=== PATIENT | female | born 1975 | race Caucasian/White ===

== ENCOUNTER 2018-10-29 18:11 | Emergency (ER) | payer OTHER ==
[2018-10-29] MEDS ORDERED: ASPIRIN 81 MG TAB.CHEW ONE (18:19)
[2018-10-29] MEDS ORDERED: NITROGLYCERIN SUBLINGUAL 0.4 MG BOTTLE OF 25. SL ONE (18:30)
[2018-10-29] MEDS ORDERED: ASPIRIN 81 MG TAB.CHEW PO ONE (18:30)
--- NOTE | 2018-10-29 18:35 | PHYS DOC ---
Adult General Chief Complaint Chief Complaint: CHEST PAIN HPI HPI 43-year-old female presents with chest tightness that started about 45 minutes ago. The patient was at work walking around she began have a central chest pressure. There is moderate in severity. It radiates to her left arm and she has some tingling around the base of the left thumb. The patient has intermittent swelling in her left arm with no definitive diagnosis. She feels like the tingling today is different than what she has had in the past. She can't really describe it. She also feels short of breath with her chest tightness. She has increased chest pain with deep breathing. 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 She denies diaphoresis. She admits to nausea, but no vomiting. No history of cardiac disease. No history of lung disease. She has a long history of GERD for which she takes Protonix daily. Review of Systems Review of Systems Constitutional: Denies fever or chills [] Eyes: Denies change in visual acuity, redness, or eye pain [] HENT: Denies nasal congestion or sore throat [] Respiratory: Pain with deep breathing. shortness of breath [] Cardiovascular: No additional information not addressed in HPI [] GI: Nausea. Denies abdominal pain, vomiting, bloody stools or diarrhea [] : Denies dysuria or hematuria [] Musculoskeletal: Left arm "tingling" [] Integument: Denies rash or skin lesions [] Neurologic: Denies headache, focal weakness or sensory changes [] Endocrine: Denies polyuria or polydipsia [] All other systems were reviewed and found to be within normal limits, except as documented in this note. Current Medications Current Medications Current Medications Medications (Trade) Dose Ordered Sig/[facility] Start Time Stop Time Status Last Admin Dose Admin Aspirin (Children'S Aspirin) 324 mg 1X ONCE 10/29/18 18:30 10/29/18 18:31 UNV Physical Exam Physical Exam Constitutional: Well developed, obese, well nourished, no acute distress, non- toxic appearance. [] HENT: Normocephalic, atraumatic, bilateral external ears normal, oropharynx moist, no oral exudates, nose normal. [] Eyes: PERRLA, EOMI, conjunctiva normal, no discharge. [] Neck: Normal range of motion, no tenderness, supple, no stridor. [] Cardiovascular:Heart rate regular rhythm, no murmur [] Lungs & Thorax: Bilateral breath sounds clear to auscultation [] Abdomen: Bowel sounds normal, soft, no tenderness, no masses, no pulsatile masses. [] Skin: Warm, dry, no erythema, no rash. [] Back: No tenderness, no CVA tenderness. [] Extremities: No tenderness, no cyanosis, no clubbing, ROM intact, no edema. [] Neurologic: Alert and oriented X 3, normal motor function, normal sensory function, no focal deficits noted. [] Psychologic: Affect normal, judgement normal, mood concerned. [] EKG EKG Sinus rhythm, rate 70, normal axis, no ST elevations or depressions.[] Radiology/Procedures Radiology/Procedures [] Impressions: EXAM: AP View of the chest DATE: 10/29/2018 6:20 PM INDICATION: Chest pain COMPARISON: No Prior FINDINGS: The heart is not enlarged. Mediastinal and hilar contours are normal. No focal parenchymal airspace opacity. No pleural effusion or pneumothorax. IMPRESSION: 1. No radiographic evidence for acute cardiopulmonary process. Electronically signed by: Alan Kiser MD (10/29/2018 7:04 PM) [facility] DICTATED AND SIGNED BY: ALAN KISER MD DATE: 10/29/181903 CC: REBEKAH ALVAREZ DO; ANISA TRIMBLE ~ Course & Med Decision Making Course & Med Decision Making Pertinent Labs and Imaging studies reviewed. (See chart for details) The patient's labs are unremarkable. Her chest x-ray is negative for acute findings. EKG is unremarkable. Troponin is negative. The patient's heart score is 2. Discussed all these results with the patient. She is feeling better at this time. She would like to go home. I offer her admission for further trending of her troponin and observation. The patient lives close to the hospital and has family at home. If her condition worsens or new symptoms develop, she will return to the emergency room. She has felt primary care physician on Wednesday. We will give her a GI cocktail to see if this helps given her history of complicated GERD. She is stable for discharge at this time. [] Dragon Disclaimer Dragon Disclaimer This electronic medical record was generated, in whole or in part, using a voice recognition dictation system. The HEART Score for CP Pts HEART Score for Chest Pain: HEART Score for Chest Pain Response (Comments) Value History Moderately Suspicious 1 ECG Normal 0 Age < 45 0 Risk Factors 1 or 2 Risk Factors 1 Troponin < Normal Limit 0 Total 2 Risk Factors: Risk Factors: DM, Current or recent (<one month) smoker, HTN, HLP, family history of CAD, obesity. Risk Scores: Score 0 - 3: 2.5% MACE over next 6 weeks - Discharge Home Score 4 - 6: 20.3% MACE over next 6 weeks - Admit for Clinical Observation Score 7 - 10: 72.7% MACE over next 6 weeks - Early Invasive Strategies Departure Departure: Impression: Primary Impression: Chest pain Additional Impression: GERD (gastroesophageal reflux disease) Disposition: 01 HOME, SELF-CARE Condition: STABLE Referrals: ANISA TRIMBLE (PCP) Patient Instructions: Chest Pain (Nonspecific), [id number] Problem Qualifiers Primary Impression: Chest pain Chest pain type: precordial pain Qualified Codes: R07.2 - Precordial pain Additional Impression: GERD (gastroesophageal reflux disease) Esophagitis presence: esophagitis presence not specified Qualified Codes: K21.9 - Gastro-esophageal reflux disease without esophagitis REBEKAH ALVAREZ DO Oct 29, 2018 18:35
[2018-10-29 18:42] LABS: BASO % 0 % (0-3); EOS # 0.1 x10^3/uL (0.0-0.7); EOS % 1 % (0-3); HEMATOCRIT 37.7 % (36.0-47.0); HEMOGLOBIN 12.5 g/dL (12.0-15.5); LYMPH # 2.5 x10^3/uL (1.0-4.8); LYMPH % 32 % (24-48); MEAN CORPUSCULAR HEMOGLOBIN 29 pg (25-35); MEAN CORPUSCULAR HGB CONC 33 g/dL (31-37); MEAN CORPUSCULAR VOLUME 86 fL (79-100); MONO # 0.4 x10^3/uL (0.0-1.1); MONO % 5 % (0-9); NEUT # 4.8 x10^3uL (1.8-7.7); NEUT % 61 % (31-73); PLATELET COUNT 226 x10^3/uL (140-400); RED BLOOD COUNT 4.37 x10^6/uL (3.50-5.40); WHITE BLOOD COUNT 7.8 x10^3/uL (4.0-11.0)
--- NOTE | 2018-10-29 19:06 | RAD ---
EXAM: AP View of the chest DATE: 10/29/2018 6:20 PM INDICATION: Chest pain COMPARISON: No Prior FINDINGS: The heart is not enlarged. Mediastinal and hilar contours are normal. No focal parenchymal airspace opacity. No pleural effusion or pneumothorax. IMPRESSION: 1. No radiographic evidence for acute cardiopulmonary process. Electronically signed by: Alan Kiser MD (10/29/2018 7:04 PM) [facility]
[2018-10-29 19:11] LABS: ALBUMIN 3.9 g/dL (3.4-5.0); CALCIUM 9.2 mg/dL (8.5-10.1); CREATININE 0.6 mg/dL (0.6-1.0); GFR 110.2; POTASSIUM 3.4 mmol/L (3.5-5.1); TOTAL BILIRUBIN 0.2 mg/dL (0.2-1.0)
[2018-10-29 19:54] LABS: BACTERIA,URINE FEW /HPF (0-FEW); BILIRUBIN,URINE NEG (NEG); CLARITY,URINE CLEAR; COLOR,URINE STRAW; GLUCOSE,URINE NEG (NEG); NITRITE,URINE NEG (NEG); RBC,URINE OCC /HPF (0-2); SQUAMOUS EPITHELIAL CELL,UR OCC /LPF; UROBILINOGEN,URINE 0.2 mg/dL (0.2 mg/dL); WBC,URINE OCC /HPF (0-4)
[2018-10-29] MEDS ORDERED: LIDO:MAALOX 1:1 20 ML SINGLE DOSE. PO ONE (20:15)
[2018-10-29 20:17] VITALS: BP 110/55
--- NOTE | 2018-10-30 18:55 | EKG ---
[address] [address] Test Date: 2018-10-29 Test Time: 18:21:20 Pat Name: SHYLA HENAO Department: Room: Gender: F [employer]: : 1975 Requested By: REBEKAH ALVAREZ Order Number: [id number] Reading MD: Measurements Intervals [place] Rate: 70 P: 43 ID: [id number] QRS: 36 QRSD: 90 T: 19 QT: 352 QTc: 383 Interpretive Statements SINUS RHYTHM NO SPECIFIC ECG ABNORMALITIES RI6.01 No previous ECG available for comparison
== END 2018-10-29 20:43 | disposition home or self-care (01) ==
LOC: ER 18:17
DX: R07.2 Precordial pain (principal); K21.9 Gastro-esophageal reflux disease without esophagitis; R22.32 Localized swelling, mass and lump, left upper limb
CPT/HCPCS: 36415; 71045; 80053; 81001; 84484; 85025; 93005; 99285

== ENCOUNTER 2019-12-12 11:18 | Emergency (ER) | payer OTHER ==
[~2019-12-12] VITALS: Ht 165.1 cm; Wt 111.1 kg
[2019-12-12] MEDS ORDERED: IV NORMAL SALINE 1,000ML 1,000 ML IV SCH (11:32)
--- NOTE | 2019-12-12 11:36 | PHYS DOC ---
Past History Past Medical History: GERD, High Cholesterol Past Surgical History: Hysterectomy, Tonsillectomy Alcohol Use: None Drug Use: None General Adult EDM: Chief Complaint: FLANK PAIN HPI: HPI: 44 yo F PMH DM, "esophageal polyps" and GERD, presents to the ed with c/o right flank pain x3-4 days with associated hematuria, increased urinary frequency and suprapubic pain. Patient describes the pain as dull and constant with intermittent episodes of sharp stabbing nonradiating pain. Patient states she has had these symptoms for over 1 month and was seen by her primary care physician, hematuria has never resolved after pt was started on abx for a uti. Pt states "I just want this pain to go away, it's been a month." Some relief with heating pad. Was referred to urology and has an upcoming appointment on January 17. LMP-h/o hysterectomy due to heavy menses no longer pursuing children. Patient denies any daily alcohol abuse, no cocaine or illicit drug use. Patient [facility], concern for nephrolithiasis. Patient reports recent CT at [facility] due to left upper extremity swelling and headaches. Grandfather with colon cancer. Pt has had a negative colonscopy in past 5 yrs. No h/o GIB or blood transfusions. No h/o traumatic back pain/herniations/radiculopathies. Review of Systems: Review of Systems: Constitutional: Denies fever or chills, denies unexplained weight loss or night sweats Eyes: Denies change in visual acuity HENT: Denies nasal congestion or sore throat Respiratory: Denies cough or shortness of breath or hemoptysis Cardiovascular: Denies chest pain or edema or syncope GI: Denies abdominal pain, nausea, vomiting, bloody stools or diarrhea : Denies vaginal bleeding or abnormal vaginal discharge Musculoskeletal: Denies saddle anesthesia or joint pain Integument: Denies rash Neurologic: Denies headache, focal weakness or sensory changes, no neck stiffness Endocrine: Denies polydipsia Lymphatic: Denies swollen glands Psychiatric: Denies depression or anxiety Heart Score: Risk Factors: Risk Factors: DM, Current or recent (<one month) smoker, HTN, HLP, family history of CAD, obesity. Risk Scores: Score 0 - 3: 2.5% MACE over next 6 weeks - Discharge Home Score 4 - 6: 20.3% MACE over next 6 weeks - Admit for Clinical Observation Score 7 - 10: 72.7% MACE over next 6 weeks - Early Invasive Strategies Allergies: Allergies: Allergies Coded Allergies Type Severity Reaction Last Updated Verified promethazine Allergy Unknown 10/29/18 Yes Physical Exam: PE: Constitutional: Well developed, well nourished, no acute distress, non-toxic appearance. [] HENT: Normocephalic, atraumatic, bilateral external ears normal, oropharynx moist, no oral exudates, nose normal. [] Eyes: EOMI, conjunctiva normal, no discharge. [] Neck: Normal range of motion, supple, no stridor. [] Cardiovascular:Heart rate regular rhythm, no murmur [] Lungs & Thorax: Bilateral breath sounds clear to auscultation [] Abdomen: Bowel sounds normal, soft, no tenderness, no masses, no pulsatile masses. [] Skin: Warm, dry, no erythema, no rash. [] Back: No tenderness, +right CVA tenderness. [] Extremities: No tenderness, no cyanosis, no clubbing, ROM intact, no LE edema Neurologic: Alert and oriented X 3, normal motor function, normal sensory function, no focal deficits noted. [] Psychologic: Affect normal, judgement normal, mood normal. [] EKG: EKG: [] Radiology/Procedures: Radiology/Procedures: IMAGING REPORT Signed PATIENT: SHYLA HENAO ACCOUNT: [id number] : 1975 LOCATION: ER AGE: 44 SEX: F EXAM STATUS: REG ER ORD. PHYSICIAN: NIVIA HERNANDEZ DO REASON: right flank pain PROCEDURE: CT ABDOMEN PELVIS WO CONTRAST EXAM: CT Abdomen and Pelvis without IV contrast INDICATION: Reason: right flank pain / Spl. Instructions: / History: TECHNIQUE: Multi-detector row CT images were acquired from the lung bases through the abdomen and pelvis without the use of IV contrast. Sagittal and coronal images were acquired from the transaxial data. All CT scans performed at this facility utilize dose optimization techniques as appropriate to the exam, including the following: Automated exposure control and adjustment of the mA and/or KV according to patient size (this includes techniques or standardized protocols for targeted exams where dose is indication/reason for exam). ORAL CONTRAST: None COMPARISON: None FINDINGS: The absence of IV contrast limits evaluation of soft tissue pathology. LOWER CHEST: Unremarkable LIVER: Diffusely fatty infiltrated, and enlarged up to 20 cm craniocaudal extent.. BILIARY SYSTEM: Gallbladder is unremarkable. Bile ducts are not dilated. PANCREAS: Unremarkable SPLEEN: Unremarkable ADRENALS: Unremarkable KIDNEYS & URETERS: Unremarkable BLADDER: Unremarkable REPRODUCTIVE ORGANS: Hysterectomy. Ovaries unremarkable on CT. GASTROINTESTINAL: The stomach, small bowel, and colon are unremarkable. The appendix is normal. MESENTERY/PERITONEUM/RETROPERITONEUM: Unremarkable VASCULAR: Unremarkable LYMPH NODES: No adenopathy OSSEOUS & SOFT TISSUES: Unremarkable IMPRESSION: Hepatomegaly and hepatic steatosis. Otherwise unremarkable CT of the abdomen and pelvis without contrast. No evidence of radiopaque stone disease or of urinary tract obstruction or inflammation on noncontrast CT. Electronically signed by: John Garcia MD (12/12/2019 12:18 PM) [id number] DICTATED AND SIGNED BY: JOHN GARCIA MD DATE: 12/12/19 1218 CC: NIVIA HERNANDEZ DO; ANISA TRIMBLE Impressions: Acute aortic dissection score 0 = low category, 6% prevalence Course & Med Decision Making: Course & Med Decision Making Pertinent Labs and Imaging studies reviewed. (See chart for details) Concern for right flank pain and hematuria x [address] with hepatosis, no radiopaque stone. Vasculature is noted as unremarkable. Flank pain and hematur ia, ddx-aortic dz/aneurysm/dissection considered, but low suspicion with abdominal and infrarenal aorta less than 3 cm, sxs have been present for 1 month, pt is HD stable, no FH aortic disease/CTD, BP wnl, pain is not a sudden onset and pain is well managed/pt in no severe distress. U/a contaminated, no bacteriuria, small blood, 1-2 rbc. Patient afebrile, no tachycardia, no leukoc ytosis with blood pressure normal range. I did discuss repeating scan with IV contrast to evaluate aorta, pt declined stating she wanted to go home. We discussed pain management-will prescribe muscle relaxers. My evaluation is consistent with pmd-will need urology referral for cystoscopy. Strict ed return precautions for neuro deficits, saddle anesthesia, urinary/bowel retention/in continence, severe pain, diaphoresis, syncope, etc. Encouraged urgent outpatient follow-up with PMD and urology. Life-threatening processes were considered but are low suspicion at this time, given history and physical exam. Pt was educated on all prescription medications and adverse effects. All patient's questions were answered and pt was stable at time of discharge. Differential includes aortic dissection, cauda equina syndrome, transverse myelitis, spinal cord compression, epidural abscess or hematoma, osteomyelitis, disc herniation, surgical abdomen, stable or unstable fracture, renal colic/urosepsis, musculoskeletal injury, traumatic injury, intraabdominal or pelvic bleeding, I spoken with the patient and her caregivers. I explained the patient's condition, diagnoses and treatment plan based on the information available to me at this time. I have answered the patient and her caregiver's questions and addressed any concerns. The patient and her caregivers have a good understanding of patient's diagnosis, condition and treatment plan as can be expected at this point. Vital signs have been stable. Patient's condition is s table and appropriate for discharge from the emergency department. Patient will pursue further outpatient evaluation with primary care physician or other designated or consulting physician as outlined in the discharge instructions. The patient and/or caregivers are agreeable to this plan of care and follow-up instructions have been explained in detail. The patient and/or caregivers have received these instructions in written form and have expressed an understanding of the discharge instructions. The patient and/or caregivers are aware that any significant change of condition or worsening of symptoms should prompt immediate return to this or the closest emergency department or call to 911Judith Gallardo Disclaimer: Sami Disclaimer: This electronic medical record was generated, in whole or in part, using a voice recognition dictation system. Departure Departure: Impression: Primary Impression: Flank pain Additional Impression: Hematuria Disposition: 01 HOME/RESIDENCE PRIOR TO ADM Condition: STABLE Referrals: ANISA TRIMBLE (PCP) Patient Instructions: Flank Pain, Hematuria, Adult Additional Instructions: Dr. Max Tompkins Urology [phone] EMERGENCY DEPARTMENT GENERAL DISCHARGE INSTRUCTIONS Thank you for coming to [facility] (ED) today and trusting us with you care. We trust that you had a positivie experience in our Emergency Department. If you wish to speak to the department management, you may call the director at [phone]. YOUR FOLLOW UP INSTRUCTIONS ARE FOLLOWS: 1. Do you have a private Doctor? If you do not have a private doctor, please ask for a resource list of physicians or clinics that may be able to assist you with follow up care. 2. The Emergency Physician has interpreted your x-rays. The X-Ray specialist will also review them. If there is a change in the findings, you will be notified in 48 hours when at all possible. 3. A lab test or culture has been done, your results will be reviewed and you will be notified if you need a change in treatment. ADDITIONAL INSTRUCTIONS AND INFORMATION: 1. Your care today has been supervised by a physician who is specially trained in emergency care. Many problems require more than one evaluation for a complete diagnosis and treatment. We recommend that you schedule your follow up appointment as recommended to ensure complete treatment of you illness or injury. If you are unable to obtain follow up care and continue to have a problem, or if your condition worsens, we recommend that you return to the ED. 2. We are not able to safely determine your condition over the phone nor are we able to give sound medical advice over the phone. For these safety reasons, if you call for medical advice we will ask you to come to the ED for further evaluation. 3. If you have any questions regarding these discharge instructions please call the ED at [phone]. SAFETY INFORMATION: In the interest of safety, wellness, and injury prevention; we encourage you to wear your sealbelt, if you smoke; quite smoking, and we encourage family to use a protective helmet for bicycling and other sporting events that present an increased risk for head injury. IF YOUR SYMPTOMS WORSEN OR NEW SYMPTOMS DEVELOP, OR YOU HAVE CONCERNS ABOUT YOUR CONDITION; OR IF YOUR CONDITION WORSENS WHILE YOU ARE WAITING FOR YOUR FOLLOW UP APPOINTMENT; EITHER CONTACT YOUR PRIMARY CARE DOCTOR, THE PHYSICIAN WHOSE NAME AND NUMBER YOU WERE GIVEN, OR RETURN TO THE ED IMMEDIATELY. Scripts Cyclobenzaprine Hcl (CYCLOBENZAPRINE HCL) 5 Mg Tablet 1 TAB PO TID for pain, #20 TAB Prov: NIVIA HERNANDEZ DO 12/12/19 Justification of Admission: Justification of Admission: Justification of Admission Dx: N/A NIVIA HERNANDEZ DO Dec 12, 2019 11:36
[2019-12-12] MEDS ORDERED: KETOROLAC 15 MG/ML VIAL. IVP ONE (11:45)
[2019-12-12 12:03] LABS: BILIRUBIN,URINE NEG (NEG); CLARITY,URINE CLEAR; COLOR,URINE YELLOW; GLUCOSE,URINE NEG (NEG); NITRITE,URINE NEG (NEG); UROBILINOGEN,URINE 0.2 mg/dL (0.2 mg/dL)
[2019-12-12 12:04] LABS: BACTERIA,URINE 0 /HPF (0-FEW); SQUAMOUS EPITHELIAL CELL,UR MOD /LPF; WBC,URINE 0 /HPF (0-4)
[2019-12-12 12:11] LABS: BASO % 0 % (0-3); EOS # 0.1 x10^3/uL (0.0-0.7); EOS % 1 % (0-3); LYMPH # 1.9 x10^3/uL (1.0-4.8); LYMPH % 22 % (24-48); MEAN CORPUSCULAR HEMOGLOBIN 28 pg (25-35); MEAN CORPUSCULAR HGB CONC 32 g/dL (31-37); MEAN CORPUSCULAR VOLUME 87 fL (79-100); MONO # 0.5 x10^3/uL (0.0-1.1); MONO % 5 % (0-9); NEUT # 6.4 x10^3uL (1.8-7.7); NEUT % 72 % (31-73); PLATELET COUNT 222 x10^3/uL (140-400); RED BLOOD COUNT 4.24 x10^6/uL (3.50-5.40); WHITE BLOOD COUNT 8.9 x10^3/uL (4.0-11.0)
[2019-12-12 12:12] LABS: PREG TEST PT QUAL NEGATIVE (NEG)
[2019-12-12 12:14] LABS: CREATININE 0.7 mg/dL (0.6-1.0); GFR 91.8; POTASSIUM 3.8 mmol/L (3.5-5.1)
--- NOTE | 2019-12-12 12:21 | RAD ---
EXAM: CT Abdomen and Pelvis without IV contrast INDICATION: Reason: right flank pain / Spl. Instructions: / History: TECHNIQUE: Multi-detector row CT images were acquired from the lung bases through the abdomen and pelvis without the use of IV contrast. Sagittal and coronal images were acquired from the transaxial data. All CT scans performed at this facility utilize dose optimization techniques as appropriate to the exam, including the following: Automated exposure control and adjustment of the mA and/or KV according to patient size (this includes techniques or standardized protocols for targeted exams where dose is indication/reason for exam). ORAL CONTRAST: None COMPARISON: None FINDINGS: The absence of IV contrast limits evaluation of soft tissue pathology. LOWER CHEST: Unremarkable LIVER: Diffusely fatty infiltrated, and enlarged up to 20 cm craniocaudal extent.. BILIARY SYSTEM: Gallbladder is unremarkable. Bile ducts are not dilated. PANCREAS: Unremarkable SPLEEN: Unremarkable ADRENALS: Unremarkable KIDNEYS & URETERS: Unremarkable BLADDER: Unremarkable REPRODUCTIVE ORGANS: Hysterectomy. Ovaries unremarkable on CT. GASTROINTESTINAL: The stomach, small bowel, and colon are unremarkable. The appendix is normal. MESENTERY/PERITONEUM/RETROPERITONEUM: Unremarkable VASCULAR: Unremarkable LYMPH NODES: No adenopathy OSSEOUS & SOFT TISSUES: Unremarkable IMPRESSION: Hepatomegaly and hepatic steatosis. Otherwise unremarkable CT of the abdomen and pelvis without contrast. No evidence of radiopaque stone disease or of urinary tract obstruction or inflammation on noncontrast CT. Electronically signed by: Roddy Garcia MD (12/12/2019 12:18 PM) [id number]
[2019-12-12 12:58] VITALS: BP 122/67
[2019-12-12] MEDS ORDERED: CYCL5TAB PO (13:32)
== END 2019-12-12 13:38 | disposition home or self-care (01) ==
LOC: ER 11:18
DX: R31.9 Hematuria, unspecified (principal); R10.30 Lower abdominal pain, unspecified; R35.0 Frequency of micturition; K21.9 Gastro-esophageal reflux disease without esophagitis; E78.00 Pure hypercholesterolemia, unspecified; Z88.8 Allergy status to other drugs, medicaments and biological substances
CPT/HCPCS: 36415; 74176; 80048; 81001; 84703; 85025; 96361; 96374; 99284; J1885; J7030